=== PATIENT | female | born 1950 | race Two or more races ===

== ENCOUNTER 2017-01-21 11:48 | Day surgery (SDC) | payer OTHER ==
[~2017-01-21] VITALS: Ht 154.9 cm; Wt 82.6 kg
[~2017-01-21 11:48] MED LIST: ALER-CAP25 M1 PO; ALLEGRA ALLERG180 MG PO; AMRIX30 MG PO; ASCORBIC ACID500 M1 PO; ASPIRIN E.C.81 M1 PO; ATIVAN0.5 MG PO; Ascorbic Acid,Ester- PO; BENADRYL25 MG PO; BIOTIN1000 MICRO PO; CARAFATE1 GM PO; CELEBREX200 MG PO; CENTRUM SILV1 TABLET PO; COBAL-10001000 MCG/2 IM; CYANOCOBAL1000 MCG/2 IM; GABAPENTIN300 MG PO; HYDROCODON-ACE1 EAC7 PO; HYDROCORTISONE28 G2 TP; LIDOCAINE700 MG TD; LIPITOR10 MG PO; LUNESTA2 MG PO; LUNESTA3 MG PO; NEXIUM20 MG PO; NEXIUM40 MG PO; PANTOPRAZOLE SO40 MG PO; PATANOL OP100 DROP/5 BOTH EYES; PAXIL40 MG PO; Paxil PO; TOPROL XL25 MG PO; Toprol XL PO; ULTRAM50 MG PO; VITAMIN D1000 INTUN PO; VITAMIN E1000 UNIT PO; Vicodin,Lortab 5/500 PO; Vitamin-E PO; ZOFRAN4 MG PO; ZONEGRAN100 MG PO
[2017-01-21 12:28] VITALS: BP 138/77
[2017-01-21 12:28] LABS: POINT-OF-CARE METER ID UU14174212
[2017-01-21 18:04] VITALS: BP 110/50
[2017-01-21 19:23] VITALS: BP 132/69
== END 2017-01-21 19:30 | disposition home or self-care (01) ==
LOC: SDC 11:48
PROVIDERS: Surgery
PROC: 0WUF0JZ Supplement Abdominal Wall with Synthetic Substitute, Open Approach (ICD-10-PCS; principal; 2017-01-21)
DX: K43.9 Ventral hernia without obstruction or gangrene (principal); Z98.84 Bariatric surgery status; Z88.1 Allergy status to other antibiotic agents
CPT/HCPCS: 82948; C1781; J0330; J0690; J1100; J1644; J2250; J2405; J3010; S0020